=== PATIENT | male | born 1965 | race Caucasian/White ===

== ENCOUNTER 2020-02-10 13:26 | Emergency (ER) | payer OTHER ==
[~2020-02-10] VITALS: Ht 180.3 cm; Wt 79.4 kg
[2020-02-10 14:17] LABS: BASOPHILS 1.3 % (0.0-2.0); EOSINOPHILS 4.2 % (0.0-3.0); HEMATOCRIT 46.5 % (42.0-52.0); LYMPHOCYTES 27.4 % (24.0-44.0); MCH 33.5 pg (26.0-34.0); MCHC 34.4 g/dL (28.0-37.0); MCV 97.6 fL (80.0-100.0); MONOCYTES 8.8 % (1.0-8.0); PLATELET COUNT 208 thou/uL (150-400); POLYS 58.3 % (36.0-66.0); RBC 4.76 mil/uL (4.50-6.00); RDW 13.3 % (10.5-14.5); WBC 5.2 thou/uL (4.0-11.0)
[2020-02-10 14:25] LABS: CALCIUM 8.6 mg/dL (8.5-10.1); CREATININE 1.4 mg/dL (0.7-1.3); POTASSIUM 4.2 mmol/L (3.5-5.1)
[2020-02-10 17:23] VITALS: BP 140/110
--- NOTE | 2020-02-11 08:51 | EKG ---
[facility] [place] [address] ELECTROCARDIOGRAM REPORT Name: TIESHA OHARA Room #: [facility]#: [id number] Admission: 02/10/20 Attend Phys: Discharge: 02/10/20 Date of : 63 Report #: [id number] THIS REPORT FOR: cc: FAM - No family physician/PCP FAM - No family physician/PCP Tanvir Prater MD [facility] THIS REPORT FOR: //name// [facility] ED Test Date: 2020-02-10 Test Time: 13:58:34 Pat Name: TIESHA OHARA Department: Room: Gender: [employer] Developer: [employer] : 1965 Requested By: Aniya Cantrell Order Number: [id number] MD: Tanvir Prater Measurements Intervals [place] Rate: 134 P: -76 WI: 40 QRS: -56 QRSD: 105 T: 259 QT: 416 QTc: 622 Interpretive Statements Atrial flutter with 2-1 AV conduction Cannot rule out inferior infarct, old Prolonged QT interval No previous ECG available for comparison Electronically Signed On 02-11-2020 8:50:40 CDT by Tanvir Prater [email or web address] <ELECTRONICALLY SIGNED> By: Tanvir Prater MD, [facility] 02/11/20 0850 [id number] [id number] Tanvir Prater MD, [facility] /EPI
== END 2020-02-10 17:25 | disposition home or self-care (01) ==
LOC: ER 13:26
PROVIDERS: Nurse Practitioner Family
DX: S22.42XA Multiple fractures of ribs, left side, initial encounter for closed fracture (principal); S27.321A Contusion of lung, unilateral, initial encounter; I16.0 Hypertensive urgency; N17.9 Acute kidney failure, unspecified; R00.0 Tachycardia, unspecified; W11.XXXA Fall on and from ladder, initial encounter; Y93.89 Activity, other specified; Y92.89 Other specified places as the place of occurrence of the external cause; Y99.8 Other external cause status